=== PATIENT | female | born 1970 | race Caucasian/White ===

== ENCOUNTER 2019-11-22 15:02 | Emergency (ER) | payer MEDICAID ==
[~2019-11-22] VITALS: Ht 167.6 cm; Wt 72.3 kg
[~2019-11-22 15:02] MED LIST: DEXL60CA3 PO; DULO20CA50 PO
[2019-11-22 15:07] VITALS: BP 140/99
[2019-11-22] MEDS ORDERED: ipratropium/albuterol 3ml nebule NEB ONE (16:00)
[2019-11-22] MEDS ORDERED: BENZ-16 PO (16:01)
[2019-11-22] MEDS ORDERED: AZIT250T82 PO (16:01)
[2019-11-22] MEDS ORDERED: ALBU8.5H8 INH (16:01)
== END 2019-11-22 17:00 | disposition home or self-care (01) ==
LOC: ER 15:03
DX: J20.9 Acute bronchitis, unspecified (principal); H92.01 Otalgia, right ear; F17.200 Nicotine dependence, unspecified, uncomplicated; Z90.49 Acquired absence of other specified parts of digestive tract; Z98.51 Tubal ligation status; Z79.899 Other long term (current) drug therapy
CPT/HCPCS: 94640; 94760; 99283